=== PATIENT | male | born 1960 | race Caucasian/White ===

== ENCOUNTER 2017-09-01 12:46 | Inpatient (IN) | payer OTHER ==
--- NOTE | 2017-09-01 16:41 | CPEKG ---
Heart Rate: 72 RR Interval: 833 P-R Interval: 180 QRSD Interval: 154 QT Interval: 432 QTC Interval: 473 P [place]: 49 QRS [place]: -49 T Wave [place]: 32 EKG Severity - ABNORMAL ECG - EKG Impression: SINUS RHYTHM EKG Impression: RBBB Electronically Signed By: Obie Desai 02-Sep-2017 06:46:36
--- NOTE | 2017-09-01 16:54 | PDGENHP ---
History and Physical - Chief Complaint infected valve - History of Present Illness 56 yo male with a 2 yr old bioprosthetic valve and a 2 wk hx of flu-like symptoms (including F/C, headache, myalgias and night sweats) ultimately found to have streptococcal bacteremia with echo suggestive of PVE. Resolution of sx on supportive therapy and targetted abx. No palpitations, presyncope, edema, SOB , abdominal tenderness or skin lesions. No recent dental work or gingivitis. Transferred from outside hospital for redo AVR to mitigate stroke risk. History Information - Allergies/Home Medication List Allergies/Adverse Reactions: codeine Allergy (Verified 09/25/15 17:42) Itching Home Medications: Cyanocobalamin [Vitamin B12 (*)] 1,000 mcg PO Q3D 09/29/15 [Last Taken 08/30/17] Iron/Vit C/Docusate [Dominic-Sequels 65 mg (*)] 1 each PO Q2D 09/29/15 [Last Taken 08/30/17] [place]-3 Fatty Acids [Fish Oil 1000 mg (*)] 1,000 mg PO DAILY 09/29/15 [Last Taken 08/30/17] buPROPion XL [Wellbutrin 150mg XL] 300 mg PO DAILY 09/29/15 [Last Taken 08/30/17 ] Aspirin [Aspirin 325 mg (*)] 325 mg PO DAILY 12/03/15 [Last Taken 08/30/17] Ibuprofen [Motrin (*)] 200 mg PO DAILY PRN 12/03/15 [Last Taken 08/30/17] Cholecalciferol Vit D3 [Vitamin D3 (*)] 2,000 units PO DAILY 09/01/17 [Last Taken 08/30/17] Diltiazem Cd [Cardizem ER 180 MG (RX)] 180 mg PO DAILY 09/01/17 [Last Taken 06/18] Fexofenadine HCl [Cherie Allergy] 180 mg PO DAILY 09/01/17 [Last Taken 08/30/17 ] I have personally reviewed and updated: medical history, social history, surgical history - Past Medical History hypertension Additional medical history: BAV with severe and moderate AI. Mildly dilated ascending aorta. Grade 2 LV diastolic dysfunction. RBBB. bipolar disorder, off meds since 2006. amaurosis fugax 2004. BPH w LUTS - Surgical History Additional surgical history: MICS AVR with 23 mm Magna bioprosthesis via partial upper "J" sternotomy 09/29/[address] Sullivan @ [facility]; uncomplicated postop course, released home POD#3. [facility]Light PVP/TURP 12/03/15. Partial colectomy for volvulus, 1999. Left rotator cuff repair, 2008 - Family History Additional family history: BAV, brother - Social History Smoking Status: Never smoked Alcohol Use: Occasionally (socially) Review of Systems Review of Systems: ROS: 10pt was reviewed & negative except for what was stated in HPI & below Genitourinary: Reports: no symptoms (since prostate surgery) Physical Exam Physical Exam: Temp Pulse Resp BP Pulse Ox 36.8 C 71 15 140/100 H 96 09/01/17 16:03 09/01/17 16:03 09/01/17 16:03 09/01/17 16:03 09/01/17 16:03 Constitutional: no apparent distress, appears nourished Eyes: anicteric sclera, other (PER, glasses) Ears, Nose, Mouth, Throat: moist mucous membranes, hearing normal, no oral mucosal ulcers, other (no visible dental disrepair) Cardiovascular: regular rate and rhythym, systolic murmur, other (well healed upper sternotomy) Peripheral Pulses: 3+: dorsalis-pedis (R), dorsalis-pedis (L) Respiratory: no respiratory distress, no rales or rhonchi, clear to auscultation Gastrointestinal: normoactive bowel sounds, soft, non-tender abdomen Genitourinary: no bladder fullness Skin: warm, no rashes or abrasions Musculoskeletal: other (symmetric tone) Neurologic: AAOx3 Psychiatric: interacting appropriately, not anxious Lab Data & Imaging Review 09/01/17 16:45 Imaging Review: Echo to be reviewed by Dr Sullivan later tonight Chest X-Ray results: no infiltrate, normal, normal heart size, other (Sternal wires x 3 intact) Visualized and Interpreted EKG results: Yes EKG Interpretation: Positive for: normal sinsus rhythm (72), right bundle branch block (incomplete) Assessment & Plan Assessment: Prosthetic valve endocarditis with mobile vegetation Plan: Cont current Abx pending intraop culture results. Redo tissue AVR via full median sternotomy tomorrow 0800. NPO after MN. Type and cross x 2u PRBC. Consents per Dr Sullivan.
[2017-09-01] MEDS ORDERED: ACETAMINOPHEN 500 MG TAB PO PRN (18:00)
--- NOTE | 2017-09-01 18:45 | PDMN ---
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 suggestive on echocardiogram, streptococcal bacteremia, resolution of symptoms on supportive therapy and targeted antibiotics, patient transferred from outside hospital to [facility] for planned 2017 8 AM surgery - redo tissue AVR via full median sternotomy to mitigate stroke risk, (Inpatient surgery per Medicare guidelines), requiring ongoing preop IV Ceftriazone daily, cardiac monitoring, pulse oximetry, comorbid history of bioprosthetic valve surgery 09/29/2015 for severe aortic stenosis, and moderate aortic insufficiency, hypertension, bipolar disorder - off meds since 2006. PA anticipates > 2 MN LOS for ongoing med nec for eval and TX of above.
[2017-09-01] MEDS ORDERED: CHLORHEXIDINE GLUC HIBICLENS 118 ML BTL TP SCH (21:00)
[2017-09-01] MEDS: MUPIROCIN 2% 22 GM OINT NS SCH (21:57)
[2017-09-01] MEDS: SENNOSIDES/DOCUSATE SODIUM TAB PO SCH (22:00)
[2017-09-01] MEDS: HEPARIN 5,000 UNIT/0.5 ML SYR SC SCH (22:00)
[2017-09-02] MEDS ORDERED: SODIUM BICARBONATE 20 MEQ, LIDOCAINE 1% 10 ML in NORMOSOL-R 1,000 ML MISC ONE (06:00)
[2017-09-02] MEDS ORDERED: MANNITOL 25% 12.5 GM/50 ML VIAL IVP ONE (06:00)
[2017-09-02] MEDS ORDERED: AMINOCAPROIC ACID 5 GM/20 ML VIAL IV ONE (06:00)
[2017-09-02] MEDS ORDERED: INSULIN REGULAR HUMAN 100 UNIT in NS 100 ML IV ONE (06:00)
[2017-09-02] MEDS ORDERED: NOREPINEPHRINE BITARTRATE 16 MG in NS 250 ML IV ONE (06:00)
[2017-09-02] MEDS ORDERED: CITRATE DEXTROSE SOLN 500 ML BAG MISC ONE (06:00)
[2017-09-02] MEDS ORDERED: PHENYLEPHRINE HCL 50 MG in NS 250 ML IV ONE (06:00)
[2017-09-02] MEDS ORDERED: PROTAMINE SULFATE 50 MG/5 ML VIAL IVP ONE (07:00)
[2017-09-02] MEDS ORDERED: CALCIUM CHLORIDE 1 GM/10 ML INJ ONE ×2 (07:00→07:04)
[2017-09-02] MEDS ORDERED: NA BICARBONATE 50 MEQ/50 ML VIAL ONE (07:01)
[2017-09-02] MEDS ORDERED: HEPARIN 10,000 UNIT/10 ML MDV (1,000 UNIT/ML) ONE ×2 (07:01→07:05)
[2017-09-02] MEDS ORDERED: MILRINONE/DEXTROSE/100 ML BAG IV ONE (07:01)
[2017-09-02] MEDS ORDERED: AMIODARONE HCL 150 MG/3 ML VIAL ONE ×2 (07:02→07:05)
[2017-09-02] MEDS ORDERED: niCARdipine/NACL/200 ML BAG IV ONE ×2 (07:02→12:27)
[2017-09-02] MEDS ORDERED: DOPamine/DEXTROSE/250 ML BAG IV ONE (07:02)
[2017-09-02] MEDS ORDERED: ADENOSINE 6 MG/2 ML VIAL ONE (07:03)
[2017-09-02] MEDS ORDERED: ceFAZolin 1 GM VIAL ONE (07:03)
[2017-09-02] MEDS ORDERED: LIDOCAINE 2% 100 MG/5 ML SYR ONE ×2 (07:04→08:00)
[2017-09-02] MEDS ORDERED: ALBUMIN 5% 250 ML BOTTLE IV ONE ×2 (07:04→11:00)
[2017-09-02] MEDS ORDERED: CITRATE DEXTROSE SOLN 500 ML BAG ONE (07:05)
[2017-09-02] MEDS ORDERED: MAGNESIUM SULFATE 1 GM/2 ML VIAL ONE (07:06)
[2017-09-02] MEDS ORDERED: methylPREDNISolone SOD SUCC 1 GM/8 ML VIAL ONE (07:06)
[2017-09-02] MEDS ORDERED: MINERAL OIL 10 ML VIAL ONE (07:09)
[2017-09-02] MEDS ORDERED: MIDAZOLAM 2 MG/2 ML VIAL IVP ONE (07:49)
--- NOTE | 2017-09-02 07:52 | PDANEPAE ---
ANE History of Present Illness Redo Ao valve secondary to osteomyelitis ANE Past Medical History - Cardiovascular History Hx Hypertension: Yes Hx Arrhythmias: Yes Hx Chest Pain: No Hx Coronary Artery / Peripheral Vascular Disease: No Hx CHF / Valvular Disease: No Hx Palpitations: No Cardiovascular History Comment: HX -AORTIC REGURUGITATION,. AORTIC ROOT DILATATION,. BICUSPID AORTIC VALVE . 09/29/2015 AORTIC VALVE REPLACEMENT. HTN. LVH. RBBB - Pulmonary History Hx COPD: No Hx Asthma/Reactive Airway Disease: No Hx Recent Upper Respiratory Infection: No Hx Oxygen in Use at Home: No Hx Sleep Apnea: No Sleep Apnea Screening Result - Last Documented: Positive Pulmonary History Comment: TAQUERIA TRIGGERS - Neurologic History Hx Cerebrovascular Accident: No Hx Seizures: No Hx Dementia: No - Endocrine History Hx Diabetes: No - Renal History Hx Renal Disorders: No - Liver History Hx Hepatic Disorders: No - Neurological & Psychiatric Hx Hx Neurological and Psychiatric Disorders: No - Cancer History Hx Cancer: No - Congenital Disorder History Hx Congenital Disorders: No - GI History Hx Gastrointestinal Disorders: No - Other Health History Other Health History: 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 PARTIAL COLECTOMY. LEFT ROTATOR CUFF REPAIR ANE Review of Systems Review of Systems: - Exercise capacity Exercise capacity: >=4 METS ANE Patient History - Allergies Allergies/Adverse Reactions: codeine Allergy (Verified 09/25/15 17:42) Itching - Home Medications Home medications: home medication list seen and reviewed Home Medications: Cyanocobalamin [Vitamin B12 (*)] 1,000 mcg PO Q3D 09/29/15 [Last Taken 08/30/17] Iron/Vit C/Docusate [Dominic-Sequels 65 mg (*)] 1 each PO Q2D 09/29/15 [Last Taken 08/30/17] [place]-3 Fatty Acids [Fish Oil 1000 mg (*)] 1,000 mg PO DAILY 09/29/15 [Last Taken 08/30/17] buPROPion XL [Wellbutrin 150mg XL] 300 mg PO DAILY 09/29/15 [Last Taken 08/30/17 ] Aspirin [Aspirin 325 mg (*)] 325 mg PO DAILY 12/03/15 [Last Taken 08/30/17] Ibuprofen [Motrin (*)] 200 mg PO DAILY PRN 12/03/15 [Last Taken 08/30/17] Cholecalciferol Vit D3 [Vitamin D3 (*)] 2,000 units PO DAILY 09/01/17 [Last Taken 08/30/17] Diltiazem Cd [Cardizem ER 180 MG (RX)] 180 mg PO DAILY 09/01/17 [Last Taken 06/18] Fexofenadine HCl [Cherie Allergy] 180 mg PO DAILY 09/01/17 [Last Taken 08/30/17 ] - NPO status NPO Status: no food or drink >8 hours NPO Since - Liquids (Date): 09/02/17 NPO Since - Liquids (Time): 00:00 NPO Since - Solids (Date): 09/02/17 NPO Since - Solids (Time): 00:00 - Anes Hx Anes Hx: no prior problems - Smoking Hx Smoking Status: Never smoked - Alcohol Use Alcohol Use: Occasionally (socially) - Family Anes Hx Family Anes Hx: none Family Hx Anesthesia Complications: NONE ANE Labs/Vital Signs - Labs Result Diagrams: 09/02/17 03:59 09/01/17 16:45 - Vital Signs Blood Pressure: 123/97 Heart Rate: 70 Respiratory Rate: 15 O2 Sat (%): 95 Height: 175.26 cm Weight: 80.3 kg ANE Physical Exam - Airway Neck exam: FROM Mallampati Score: Class 2 Mouth exam: normal dental/mouth exam - Pulmonary Pulmonary: no respiratory distress - Cardiovascular Cardiovascular: regular rate and rhythym - ASA Status ASA Status: II ANE Anesthesia Plan Anesthesia Plan: general endotracheal anesthesia Lines/Monitors: arterial line, central line
[2017-09-02] MEDS ORDERED: MIDAZOLAM 2 MG/2 ML VIAL ONE ×3 (07:58→08:00)
[2017-09-02] MEDS ORDERED: REMIFENTANIL HCL 1 MG VIAL ONE (07:59)
[2017-09-02] MEDS ORDERED: DEXMEDETOMIDINE HCL 400 MCG in NS 100 ML IV SCH (08:00)
[2017-09-02] MEDS ORDERED: fentaNYL 250 MCG/5 ML INJ ONE (08:00)
[2017-09-02] MEDS ORDERED: ONDANSETRON 4 MG/2 ML VIAL ONE (08:00)
[2017-09-02] MEDS ORDERED: ROCURONIUM 100 MG/10 ML VIAL ONE (08:00)
[2017-09-02] MEDS ORDERED: PROPOFOL/EMULSION 500 MG/50 ML BOTTLE IV ONE (08:00)
[2017-09-02] MEDS ORDERED: epHEDrine SULFATE 10 MG/ML SYR ONE ×2 (08:00)
[2017-09-02] MEDS ORDERED: DEXAMETHASONE 4 MG/ML VIAL ONE ×2 (08:00)
[2017-09-02] MEDS ORDERED: PHENYLEPHRINE HCL 100 MCG/ML SYR ONE (08:00)
[2017-09-02] MEDS ORDERED: LIDOCAINE HCL 160 MG/4 ML LTA KIT TP ONE (08:01)
[2017-09-02] MEDS: cefTRIAXone 2 GM in STERILE WATER INJ 20 ML IV SCH (08:42)
[2017-09-02] MEDS ORDERED: fentaNYL 100 MCG/2 ML INJ ONE ×2 (10:51→11:45)
[2017-09-02] MEDS ORDERED: MAGNESIUM SULF 2 GM/WATER 50 ML BAG IV ONE (10:56)
[2017-09-02] MEDS ORDERED: SUGAMMADEX SODIUM 200 MG/2 ML VIAL IVP ONE (11:50)
[2017-09-02] MEDS ORDERED: METOCLOPRAMIDE 10 MG/2 ML VIAL IVP PRN (12:01)
[2017-09-02] MEDS ORDERED: PANTOPRAZOLE SODIUM 40 MG VIAL IVP ONE (12:01)
[2017-09-02] MEDS ORDERED: ACETAMINOPHEN 650 MG SUPP PR PRN (12:01)
[2017-09-02] MEDS ORDERED: ACETAMINOPHEN 325 MG TAB PO PRN (12:01)
[2017-09-02] MEDS ORDERED: ALBUMIN 5% 250 ML IV PRN (12:01)
[2017-09-02] MEDS ORDERED: BISACODYL 10 MG SUPP PR PRN (12:01)
[2017-09-02] MEDS ORDERED: MAGNESIUM SULF 2 GM/WATER 50 ML IV ONE (12:01)
[2017-09-02] MEDS ORDERED: ONDANSETRON 4 MG/2 ML VIAL IVP PRN (12:01)
[2017-09-02] MEDS ORDERED: MEPERIDINE 25 MG/0.5 ML AMP IVP PRN (12:01)
[2017-09-02] MEDS ORDERED: SODIUM CL NASAL 45 ML BTL EACHNARE PRN (12:01)
[2017-09-02] MEDS ORDERED: LACTULOSE 20 GM/30 ML UDCUP PO PRN (12:01)
[2017-09-02] MEDS ORDERED: POLYETHYLENE GLYCOL 3350 17 GM PKT PO PRN (12:01)
[2017-09-02] MEDS ORDERED: MAGNESIUM HYDROXIDE 30 ML UDCUP PO PRN (12:01)
[2017-09-02] MEDS ORDERED: POTASSIUM Cl (KCl) 50 ML IV PRN (12:01)
[2017-09-02] MEDS ORDERED: D50W 25 GM/50 ML SYR IVP PRN (12:01)
[2017-09-02] MEDS ORDERED: CEPACOL LOZENGE PO PRN (12:01)
[2017-09-02] MEDS ORDERED: ONDANSETRON DISINTEGRATING 4 MG TAB PO PRN (12:01)
[2017-09-02] MEDS ORDERED: NS 1,000 ML IV SCH (12:15)
[2017-09-02] MEDS ORDERED: KETOROLAC 30 MG/1 ML SDV ONE (12:20)
[2017-09-02] MEDS ORDERED: KETOROLAC 30 MG/1 ML SDV IVP ONE (12:30)
[2017-09-02] MEDS ORDERED: INSULIN REGULAR HUMAN 100 UNIT in NS 100 ML IV SCH (12:30)
[2017-09-02] MEDS ORDERED: KETOROLAC 15 MG/1 ML SDV IVP SCH (13:00)
--- NOTE | 2017-09-02 13:04 | GOP ---
[f rep st] OPERATIVE REPORT DATE OF OPERATION: 09/02/2017 SURGEON: Darwin Sullivan DO TRADE SHOW SPECIALIST: Laya Winchester, PAC ANESTHESIA: Sony Davidson MD PREOPERATIVE DIAGNOSIS: Prosthetic valve endocarditis. POSTOPERATIVE DIAGNOSIS: Prosthetic valve endocarditis. PROCEDURE PERFORMED: Reoperation aortic valve replacement with a #23 Hess Inspiris valve. FINDINGS: DESCRIPTION OF PROCEDURE: The patient was consented for surgery after transesophageal echo revealed a large 1 x 2 cm mobile vegetation on the prosthetic aortic valve without perivalvular leak. He was consented for surgery, brought to the operating room intubated, monitoring lines were placed. He was prepped and draped in sterile classical manner. Time-out was confirmed with the team. Repeat santos otomy was performed. Marsupialization of the right side of the heart and ascending aorta without man ipulation of the aorta or heart was performed to avoid dislodgement. He was heparinized, cannulated in the standard fashion. Bypass was begun. Antegrade cardioplegia was administered after cross-clam p was applied followed by retrograde cardioplegia. We then performed a transverse aortotomy. The ao rtic valve was intact. However, there was a large 2 x 1 cm vegetation loosely adherent to the cusps. This was removed and sent for culture. We then spent some time excising the previous valve and manasa riding the anulus. The LV chamber was irrigated. CO2 was infused throughout. We then placed a 23 m m Inspiris valve in a supra-annular position with interrupted 2-0 Tycron pledgeted mattress sutures. Aortotomy was closed in a 2-layer fashion. The cross-clamp was removed with suction on the ascendin g aortic vent and LV sump. When no further air was identified, he was easily weaned from bypass. Th e heparin was reversed with protamine. The cannula was removed and oversewn. Two ventricular pacing wires, 2 pleural 1 mediastinal drain were placed. The thymic fat and pericardium were closed. Ches t was closed in standard fashion. The patient was returned to ICU in stable condition. /[id number]/MODL
[2017-09-02] MEDS: MUPIROCIN 2% 22 GM OINT NS SCH ×2 (13:26→21:22)
[2017-09-02] MEDS: HEPARIN 5,000 UNIT/0.5 ML SYR SC SCH (13:27)
[2017-09-02] MEDS: SENNOSIDES/DOCUSATE SODIUM TAB PO SCH (13:28)
--- NOTE | 2017-09-02 15:30 | ASMTCMCOM ---
CM Note CM Note Notes: Pt admitted with an infected valve and s/p aortic valve replacement redo. Pt has a Bipolar d/o dx and not on meds since 2006. CM will follow for any d/c needs. Date Signed: 09/02/2017 03:29 PM Electronically Signed By:PRESTON Lawson
[2017-09-02] MEDS: HYDROCODONE/APAP 5/325 TAB PO PRN ×2 (17:22→23:40)
[2017-09-02] MEDS ORDERED: GENTAMICIN SULFATE IV ONE (18:16)
[2017-09-02] MEDS ORDERED: D5W IV ONE (18:16)
[2017-09-02] MEDS: KETOROLAC 30 MG/1 ML SDV IVP SCH ×2 (18:31→23:37)
[2017-09-02] MEDS: fentaNYL 100 MCG/2 ML INJ IVP PRN (19:16)
--- NOTE | 2017-09-02 21:40 | GCON ---
[f rep st] CONSULTATION INPATIENT INFECTIOUS DISEASE CONSULTATION REFERRING PHYSICIAN: Darwin Sullivan DO REASON FOR REFERRAL: Prosthetic valve endocarditis. HISTORY OF PRESENT ILLNESS: The patient is a 56-year-old male who had an initial prosthetic valve re placement approximately 2 years ago with an uncomplicated postop course. He did have a history of bi cuspid aortic valve. He began having problems approximately 2 weeks ago with flu-like symptoms inclu ding fevers and chills. He also had night sweats. He was found by blood cultures to have Streptococ cus mitis in his blood. He had an echo suggestive of a mobile echodensity off the prosthetic aortic valve. His symptoms resolved on antibiotics at an outlying hospital. He was transferred to [facility] [address] for preparation of aortic valve replacement. He underwent that surgery this morning without com plications. He is recovering and alert in the ICU. Patient was placed on ceftriaxone earlier today. Patient has no issues with allergies. PAST MEDICAL HISTORY: 1. Hypertension. 2. Bivalvular aortic valve with severe aortic stenosis and moderate aortic insufficiency. 3. Mildly dilated ascending aorta. 4. Left ventricular diastolic dysfunction. 5. Right bundle branch block. 6. History of bipolar disorder. 7. Amaurosis fugax in 2004. 8. Benign prostatic hypertrophy. PAST SURGICAL HISTORY: 1. Aortic valve replacement, 2015. 2. [facility] TURP, 2015. 3. Partial colectomy secondary to volvulus, 1999. 4. Left rotator cuff repair, 2008. MEDICATIONS: ANTIBIOTICS: Ceftriaxone. ALLERGIES: No known drug allergies. SOCIAL HISTORY: No tobacco use. Only occasional alcohol use. No drug use. FAMILY HISTORY: Significant for bicuspid aortic valve. REVIEW OF SYSTEMS: Other than that detailed above in history of present illness, patient does have s ome [id number] postoperative pain. Otherwise, the review is negative. PHYSICAL EXAMINATION: VITAL SIGNS: Temperature maximum is 37, temperature current is 37, heart rate is 62, respiratory rate is 20, blood pressure is 95/62. GENERAL: Patient is a well-formed well-nou rished male in no acute distress. He is not toxic in appearance. He is alert and oriented x3. He i s pleasant in demeanor. HEENT: Normocephalic for age. Atraumatic. No scleral icterus. No oral le virginie or drainage from the nares. Eyelids and conjunctivae are within normal limits. Pupils are equa l and round bilaterally. NECK: Supple. No meningismus. LUNGS: Clear to auscultation with reasona ble effort. HEART: Regular rate and rhythm. SKIN: Warm and dry to the touch. Patient has a santos al operative wound which is clean, dry, and intact. No bleeding. MUSCULOSKELETAL: No other muscle tenderness is noted. No joint line effusion or arthritis seen. NEURO: Cranial nerves 2 through 12 seem to be intact. Peripheral sensation seems intact in extremities. DATA REVIEWED: LABORATORY DATA: Patient has a CBC dated 09/02/2017 that shows a white blood cell co unt of 9.0, hemoglobin of 13.8, hematocrit of 43.1, and a platelet count of 309. Serum chemistries o n 09/02/2017 are all within normal limits. Creatinine is 1.0. MICROBIOLOGIC DATA: Patient has operative cultures from earlier today which is cardiac tissue. Gram stain is negative for organisms, and the culture is pending. Prior culture from [facility] from the blood shows 2/2 sets with Streptococcus mitis sensitive to both penicillin and cef triaxone. ASSESSMENT: Prosthetic valve endocarditis of the aortic bioprosthetic valve. Removed today. The is olate shows good sensitivity to both penicillin and ceftriaxone. Currently, he is on ceftriaxone. T he decision is whether or not to add an aminoglycoside. I think in this circumstance, the patient is low risk for any kind of renal or other toxicity due to the low-dose drug, so I think it is reasonab le to plan on adding gentamicin at 3 mg/kg q.24 hours for the first 2 weeks of therapy. The total du ration of the ceftriaxone will go for 6 weeks. We will follow him clinically to see how he tolerates this regimen. PLAN: 1. Ceftriaxone 2 g IV q.24 hours for 6 weeks. 2. Gentamicin 3 mg/kg q.24 hours IV for the first 2 weeks. 3. Follow up on his initial blood cultures and operative cultures. /[id number]/MODL
[2017-09-03] MEDS: fentaNYL 100 MCG/2 ML INJ IVP PRN (02:23)
[2017-09-03 05:26] LABS: PLATELET COUNT 237 10^3/uL (150-400)
[2017-09-03] MEDS: KETOROLAC 30 MG/1 ML SDV IVP SCH ×4 (05:50→23:54)
[2017-09-03] MEDS: HEPARIN 5,000 UNIT/0.5 ML SYR SC SCH ×3 (05:50→21:18)
[2017-09-03] MEDS: HYDROCODONE/APAP 5/325 TAB PO PRN ×2 (06:49→11:11)
--- NOTE | 2017-09-03 06:57 | SOAPPROG ---
SOAP Progress Note Assessment/Plan: Assessment: POD#1 Redo AVR #23 Hess Inspiris Resilia bioprosthesis Strep mitis PVE - with large mobile vegetation (see intraop pics paper chart). Valve replaced without incident. Await cx results. Extubated in the OR. Hemodynamically stable early postop course. No vasoactive support. No dysrhythmias. ID following and directing abx. Antithrombotic prophylaxis with ASA alone. AF prophylaxis with BB as tolerated. Acute expected blood loss anemia - Stable. No transfusions required. VTE prophylaxis with SQ hep. Plan: Routine POD#1 orders re wires, lines, drains, orals and mobility. Lasix 20 mg IV x 1 Start metoprolol 12.5 mg BID w conservative hold parameters. PICC if ok with ID. Tx to PCU. 09/03/17 06:54 Subjective: Feels well. Adequate analgesia. OOB without dizziness. Hungry. Objective: Vital Signs Temp Pulse Resp BP Pulse Ox 36.8 C 82 18 134/75 H 91 L 09/03/17 05:00 09/03/17 06:00 09/03/17 06:00 09/03/17 06:00 09/03/17 06:00 Microbiology 09/02/17 10:00 Gram Stain - Final Heart - Tissue Laboratory Results 09/03/17 05:10 09/03/17 05:10 09/02/17 09/03/17 09/04/17 05:59 05:59 05:59 Intake Total 500 8061 Output Total 2110 Balance 500 5951 Stable HR and rhythm. Brief nicardipine for elev SBPs secondary to pain. Min suppl O2 req. No sig CTOP. CXR -> hypoventilation, left basilar atelectasis, no PTX. Relatively balanced I/Os, intake reflects maintenance IVF documentation error. Elev K, likely iatrogenic. Cr stable. Physical Exam - Physical Exam General Appearance: alert, no apparent distress Respiratory: lungs clear (grossly), other (blakes x 3 y-d to pleurovac, thin serosang drainage, no air leak) Cardiac/Chest: regular rate, rhythm, other (Sternotomy CDI. Vwires intact.) Abdomen: normal bowel sounds, non-tender, soft Skin: warm/dry Extremities: swelling (trace generalized) ICD10 Worksheet Patient Problems: Problems Problem Status Onset Acute blood loss anemia Acute Prosthetic valve endocarditis Acute S/P aortic valve replacement with bioprosthetic valve Acute ~09/02/17 Aortic ectasia Chronic Diastolic dysfunction Chronic
[2017-09-03] MEDS ORDERED: FUROSEMIDE 20 MG/2 ML VIAL IVP ONE (08:04)
[2017-09-03] MEDS: ASPIRIN 325 MG TAB PO SCH (09:14)
[2017-09-03] MEDS: METOPROLOL TARTRATE 25 MG TAB PO SCH ×2 (09:14→21:41)
[2017-09-03] MEDS: buPROPion XL 150 MG TAB PO SCH (09:14)
[2017-09-03] MEDS: PANTOPRAZOLE SODIUM 40 MG TAB PO SCH (09:14)
[2017-09-03] MEDS: CETIRIZINE 10 MG TAB PO SCH (09:14)
[2017-09-03] MEDS: cefTRIAXone 2 GM in STERILE WATER INJ 20 ML IV SCH (09:14)
--- NOTE | 2017-09-03 09:44 | POSTANESTH ---
Post Anesthetic Evaluation Cardiovascular Status: Normal, Stable Respiratory Status: Tx Decrease in SpO2 Level of Consciousness/Mental Status: Can Participate in Eval Pain Control: Adequate, Prn Tx Ordered Nausea/Vomiting Control: Adequate, Prn Tx Ordered Complications Possibly Related to Anesthesia: None Noted (Having breakfast Feels great O2 by NC only)
[2017-09-03] MEDS: MUPIROCIN 2% 22 GM OINT NS SCH ×2 (11:12→21:22)
--- NOTE | 2017-09-03 13:46 | PCMIDPN ---
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 This is in the strep [place] group. The isolate from [place] is penicillin sensitive. We will choose to continue on ceftriaxone 2 g IV Q 24 hr with gentamicin at 3 milligrams/kilogram IV Q 24 hr for the 1st 2 weeks. Patient is making a remarkable clinical recovery from his redo valve. No fevers or chills. Plan: 1. PICC line placement when ready. 2. Follow clinical improvement. Will plan for him to have 6 weeks of IV antibiotics at home. 09/03/17 13:43 Subjective: Patient is resting in his bed in the ICU. He was very active this morning and walked around the ICU twice. No new complaints except for postoperative pain. Objective: Ceftriaxone # 2 Gentamicin # 1 Vital Signs Temp Pulse Resp BP Pulse Ox 37 C 76 20 114/82 H 94 09/03/17 08:00 09/03/17 12:00 09/03/17 12:00 09/03/17 12:00 09/03/17 12:00 Microbiology 09/02/17 10:00 Gram Stain - Final Heart - Tissue Laboratory Results 09/03/17 05:10 09/03/17 05:10 09/02/17 09/03/17 09/04/17 05:59 05:59 05:59 Intake Total 500 8061 500 Output Total 2110 425 Balance 500 5951 75 - Physical Exam General Appearance: WD/WN, alert, no apparent distress, non-toxic Respiratory: lungs clear, normal breath sounds, No respiratory distress Cardiac/Chest: regular rate, rhythm, No bradycardia, No tachycardia Skin: normal color, warm/dry, No rash Neuro/Psych: alert, normal mood/affect, oriented x 3 ICD10 Worksheet Patient Problems: Problems Problem Status Onset Acute blood loss anemia Acute Prosthetic valve endocarditis Acute S/P aortic valve replacement with bioprosthetic valve Acute ~09/02/17 Aortic ectasia Chronic Diastolic dysfunction Chronic
[2017-09-03] MEDS: traMADol 50 MG TAB PO PRN ×2 (15:53→21:18)
[2017-09-03] MEDS ORDERED: D5W IV ONE (18:00)
[2017-09-03] MEDS ORDERED: GENTAMICIN SULFATE IV ONE (18:00)
[2017-09-04] MEDS: HYDROCODONE/APAP 5/325 TAB PO PRN ×2 (06:12→21:27)
[2017-09-04] MEDS: HEPARIN 5,000 UNIT/0.5 ML SYR SC SCH ×3 (06:14→21:12)
--- NOTE | 2017-09-04 07:19 | SOAPPROG ---
SOAP Progress Note Assessment/Plan: Assessment: POD#2 Urgent redo AVR #23 Hess Inspiris Resilia bioprosthesis Strep mitis PVE - with large mobile vegetation (see intraop pics paper chart). Valve replaced without incident. Extubated in the OR. Hemodynamically stable early postop course. No vasoactive support. No dysrhythmias. GS of vegetation neg for org, prelim cx NGTD. ID following and directing abx. Antithrombotic prophylaxis with ASA alone. AF prophylaxis with BB as tolerated. Acute expected blood loss anemia - Stable. No transfusions required. VTE prophylaxis with SQ hep. Plan: Remove TCPWs and CTs. Cont metoprolol 12.5 mg BID w conservative hold parameters. Wean O2. Carole blood cultures. PICC if bacteremia cleared. Baseline postop echo tomorrow. Dispo - Anticipate home in 2 days. 09/04/17 07:15 Subjective: Feels well. Improving mobility. Adequate analgesia. Good appetite. Awaiting BM. Objective: Vital Signs Temp Pulse Resp BP Pulse Ox 36.8 C 79 16 118/79 97 09/04/17 04:00 09/04/17 04:00 09/04/17 04:00 09/04/17 04:00 09/04/17 04:00 Microbiology 09/02/17 10:00 Gram Stain - Final Heart - Tissue Laboratory Results 09/03/17 05:10 09/04/17 06:30 09/03/17 09/04/17 09/05/17 05:59 05:59 05:59 Intake Total 8061 850 200 Output Total 2110 1020 150 Balance 5951 -170 50 Afeb. VSS. SR w PACs. Excellent sats on 2 lpm, likely could wean to RA once CTs out. Adequate fluid balance. CTOP at removal criteria. - Pending Discharge Pending Discharge Within 48 Hours: Yes Pending Discharge Date: 09/06/17 Pending Discharge Time: 11:00 Physical Exam - Physical Exam General Appearance: alert, no apparent distress Respiratory: crackles (bases), other (blakes x 3 to bulb suction, thin serosang drainage) Cardiac/Chest: regular rate, rhythm, other (Sternotomy CDI) Abdomen: non-tender, soft Skin: warm/dry Extremities: other (no visible edema) ICD10 Worksheet Patient Problems: Problems Problem Status Onset Acute blood loss anemia Acute Prosthetic valve endocarditis Acute S/P aortic valve replacement with bioprosthetic valve Acute ~09/02/17 Aortic ectasia Chronic Diastolic dysfunction Chronic
[2017-09-04] MEDS: cefTRIAXone 2 GM in STERILE WATER INJ 20 ML IV SCH (10:56)
[2017-09-04] MEDS: CHOLECALCIFEROL VIT D3 1,000 UNITS TAB PO SCH (10:56)
[2017-09-04] MEDS: buPROPion XL 150 MG TAB PO SCH (10:57)
[2017-09-04] MEDS: ASPIRIN 325 MG TAB PO SCH (10:57)
[2017-09-04] MEDS: CETIRIZINE 10 MG TAB PO SCH (10:57)
[2017-09-04] MEDS: PANTOPRAZOLE SODIUM 40 MG TAB PO SCH (10:57)
[2017-09-04] MEDS: METOPROLOL TARTRATE 25 MG TAB PO SCH ×2 (10:58→21:12)
[2017-09-04] MEDS: OMEGA-3 FATTY ACIDS 1,000 MG CAP PO SCH (10:58)
[2017-09-04] MEDS: SENNOSIDES/DOCUSATE SODIUM TAB PO SCH ×2 (10:59→21:13)
[2017-09-04] MEDS ORDERED: AMIODARONE HCL 100 ML IV ONE (11:04)
[2017-09-04] MEDS ORDERED: AMIODARONE HCL 200 ML IV ONE (11:04)
[2017-09-04] MEDS: traMADol 50 MG TAB PO PRN ×2 (11:41→18:43)
--- NOTE | 2017-09-04 13:07 | PCMIDPN ---
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 Reviewed isolate with [facility]ology lab - organism did not grow well enough for gentamicin synergy testing. Will continue ceftriaxone and gentamicin x2 weeks with subsequent 4 weeks of ceftriaxone to complete 6 weeks total of therapy. Side effects of gentamicin including risk of nephrotoxicity, ototoxicity, and vestibular toxicity reviewed with patient. Will obtain trough level prior to next dose of gentamicin to ensure safety; no clear guidelines for goal levels with once daily dosing for this purpose. Time spent, greater than 35 min, of which greater than half was spent in education/counseling/coordination of care related prosthetic valve endocarditis and plan of care including need for PICC line with risks and benefits discussed and ongoing antibiotic therapy with risks and benefits discussed. 09/04/17 13:03 09/04/17 13:08 Subjective: Patient with discomfort after having chest tubes removed. Objective: Vital Signs Temp Pulse Resp BP Pulse Ox 36.8 C 90 24 H 121/92 H 91 L 09/04/17 11:56 09/04/17 11:56 09/04/17 11:56 09/04/17 11:56 09/04/17 11:56 Microbiology 09/02/17 10:00 Gram Stain - Final Heart - Tissue Laboratory Results 09/03/17 05:10 09/04/17 06:30 09/03/17 09/04/17 09/05/17 05:59 05:59 05:59 Intake Total 8061 850 500 Output Total 2110 1120 150 Balance 5951 -270 350 Ceftriaxone # 3 Gentamicin # 3 Valve cultures no growth to date - Physical Exam General Appearance: alert, no apparent distress EENT: No conjunctival petechiae Respiratory: lungs clear, No respiratory distress Cardiac/Chest: regular rate, rhythm, other (Sternotomy intact without erythema or drainage), No systolic murmur Abdomen: non-tender, No distended Skin: No embolic lesions ICD10 Worksheet Patient Problems: Problems Problem Status Onset Acute blood loss anemia Acute Postoperative atrial fibrillation Acute Prosthetic valve endocarditis Acute S/P aortic valve replacement with bioprosthetic valve Acute ~09/02/17 Aortic ectasia Chronic Diastolic dysfunction Chronic
[2017-09-04] MEDS: MUPIROCIN 2% 22 GM OINT NS SCH (14:14)
--- NOTE | 2017-09-04 14:22 | ASMTCMCOM ---
CM Note CM Note Notes: 09/04/2017 Case Management Note Met w/pt to discuss d/c antibiotic needs. Faxed referrals to several home infusion companies. Pt is in network with [facility] and has met his deductible, home antibiotics are 100 % covered. [facility] priced out the antibiotics at $18.40 per day. Waiting to hear pricing from [facility]. Pt inquired about using the infusion center at [address] through [facility]. After discussing above options pt prefers home IV therapy. Case Management faxed referrals for home agent. Case Management d/c poc: home with iv antibiotics and home agent. Case Management to follow. Date Signed: 09/04/2017 02:21 PM Electronically Signed By:Heather Rossi RN
[2017-09-04] MEDS ORDERED: ALTEPLASE 2 MG VIAL IVP PRN (16:18)
[2017-09-04] MEDS ORDERED: AMIODARONE HCL 540 MG in D5W 300 ML IV ONE (17:30)
[2017-09-04] MEDS: FERRO-SEQUELS 65 MG TAB.ER PO SCH (18:42)
[2017-09-04] MEDS: GENTAMICIN SULFATE IV SCH (19:46)
[2017-09-04] MEDS: D5W IV SCH (19:46)
[2017-09-05] MEDS: traMADol 50 MG TAB PO PRN (02:03)
[2017-09-05] MEDS: HYDROCODONE/APAP 5/325 TAB PO PRN ×3 (06:19→20:41)
--- NOTE | 2017-09-05 06:24 | SOAPPROG ---
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 PICC line ordered. Antithrombotic prophylaxis with ASA alone. AF prophylaxis with BB as tolerated. Paroxysmal atrial fibrillation - Prompt conversion to SR with amiodarone load. Will convert to PO today. [id number] of 0. Acute expected blood loss anemia - Stable. No transfusions required. DVT prophylaxis - SCDs/heparin SQ. Disposition - home Monday with [facility] for antibiotic administration as per ID. Subjective: Feels well today. Denies pain/SOB. Objective: Vital Signs Temp Pulse Resp BP Pulse Ox 37.1 C 66 20 120/87 H 94 09/05/17 04:00 09/05/17 04:00 09/05/17 04:00 09/05/17 04:00 09/05/17 04:00 Microbiology 09/02/17 10:00 Gram Stain - Final Heart - Tissue Laboratory Results 09/03/17 05:10 09/04/17 06:30 09/04/17 09/05/17 09/06/17 05:59 05:59 05:59 Intake Total 850 1431 Output Total 1120 900 Balance -270 531 Physical Exam - Physical Exam General Appearance: WD/WN, alert, no apparent distress EENT: No scleral icterus (R), No scleral icterus (L) Neck: normal inspection Respiratory: No respiratory distress Cardiac/Chest: regular rate, rhythm Abdomen: non-tender, soft, No distended Skin: normal color, warm/dry Extremities: No pedal edema Neuro/Psych: no motor/sensory deficits, alert, normal mood/affect, oriented x 3 ICD10 Worksheet Patient Problems: Problems Problem Status Onset Acute blood loss anemia Acute Postoperative atrial fibrillation Acute Prosthetic valve endocarditis Acute S/P aortic valve replacement with bioprosthetic valve Acute ~09/02/17 Aortic ectasia Chronic Diastolic dysfunction Chronic
[2017-09-05] MEDS: HEPARIN 5,000 UNIT/0.5 ML SYR SC SCH ×3 (06:43→20:42)
[2017-09-05] MEDS ORDERED: CYANO/VITAMIN B12 1000 MCG TAB PO SCH (08:00)
[2017-09-05] MEDS: ASPIRIN 325 MG TAB PO SCH (08:21)
[2017-09-05] MEDS: buPROPion XL 150 MG TAB PO SCH (08:21)
[2017-09-05] MEDS: OMEGA-3 FATTY ACIDS 1,000 MG CAP PO SCH (08:21)
[2017-09-05] MEDS: PANTOPRAZOLE SODIUM 40 MG TAB PO SCH (08:21)
[2017-09-05] MEDS: FERRO-SEQUELS 65 MG TAB.ER PO SCH (08:21)
[2017-09-05] MEDS: CHOLECALCIFEROL VIT D3 1,000 UNITS TAB PO SCH (08:21)
[2017-09-05] MEDS: SENNOSIDES/DOCUSATE SODIUM TAB PO SCH ×2 (08:21→20:42)
[2017-09-05] MEDS: CETIRIZINE 10 MG TAB PO SCH (08:22)
[2017-09-05] MEDS: METOPROLOL TARTRATE 25 MG TAB PO SCH ×2 (08:22→20:42)
[2017-09-05] MEDS: AMIODARONE HCL 200 MG TAB PO SCH ×2 (08:22→20:42)
[2017-09-05] MEDS: cefTRIAXone 2 GM in STERILE WATER INJ 20 ML IV SCH (08:30)
--- NOTE | 2017-09-05 12:08 | ECHO ---
[email or web address] [address] [address] Main: [phone] Fax: Transthoracic Echocardiogram Name: MANA SINGH MR#: [id number] Study Date: 09/05/2017 Study Time: 07:37 AM Date of : 1960 Age: 56 year(s) Height: 175.3 cm (69 in.) Weight: 85.73 kg (189 lb.) BSA: 2.02 m2 Gender: Male Examination: Echo Indication: Baseline post op echo Image Quality: Adequate Contrast: Requested by: Laya Winchester BP: 108 mmHg/96 mmHg Heart Rate: Rhythm: Indication: Baseline post op echo Procedure Staff Peoplesoft Hr Developer: Corrine Gonzalez RD Reading Physician: Nancy Massey MD Requesting Provider: Conclusions: Normal size left ventricle. Moderate concentric LV hypertrophy. Normal global systolic LV function. The ejection fraction is estimated to be 55-60 %. No regional wall motion abnormality. Normal diastolic LV function. Normal size right ventricle. Normal RV function. Mild mitral valve regurgitation is present. The aortic valve is a bioprosthesis. Normal functioning aortic valve prosthesis. The orifice motion of the prosthetic aortic valve is normal. No prosthesis regurgitation. #23 Hess Inspiris Resilia bioprosthetic aortic valve in place. Mean prosthetic valve gradient is 15 mmHg. Mild tricuspid regurgitation is present. The pulmonary artery pressure is normal. Compared with 10/01/2015 the aortic valve has been re-replaced Measurements: Chambers Valvular Assessment AV/MV Valvular Assessment TV/PV Normal Normal Normal Name Value Range Name Value Range Name Value Range Ao Marianela (2D): 3.4 cm (1.4 cm-2.6 AV meanP mmHg ( - ) TR Vmax: 2.09 mm/s ( - ) cm) YARON (VTI): 1.3 cm ( - ) TR PGmax: 17 mmHg ( - ) IVSd (2D): 1.5 cm (0.6 cm-1.1 MV E Vmax: 0.92 m/s ( - ) syst. PAP: 22 mmHg ( - ) cm) MV A Vmax: 0.66 m/s ( - ) PV Vmax: 1.33 m/s (0.6 m/s-0.9 LVDd (2D): 4.4 cm (4.2 cm-5.9 MV E/A: 1.39 ( - ) m/s) cm) MV PHT: 0.054 s ( - ) PV PGmax: 7 mmHg ( - ) Patient: MANA SINGH Study Date: 09/05/2017 Page 1 of 3 07:37 AM LVDs (2D): 3.3 cm (2.1 cm-4 MVA (PHT): 4.1 s ( - ) cm) LVPWd (2D): 1.4 cm (0.6 cm-1 cm) LVOTd 2.0 cm 2.0 cm mm LVEF (BP): 60 % (>=55 %) EF Range: 55-60 % RVDd(2D): 4.3 cm (1.9 cm-3.8 cmmm) Continued Measurements: Chambers Valvular Assessment AV/MV Valvular Assessment TV/PV Name Value Name Value Name Value LADs: 3.3 cm MV DecTime: 183 m/s CVP (est.): 5 mmHg LADs Lon.6 cm MV E' Septal: 0.07 m/s LA Area: 17.4 cm2 MV E/E' Septal: 13.30 RA Area: 24.2 cm2 MV E/E' Lateral: 7.00 Additional Vessels Name Value Ao Ascendin.6 cm Inferior Vena Cava: 1.7 cm Findings: Left Ventricle: Normal size left ventricle. Moderate concentric LV hypertrophy. Normal global systolic LV function. The ejection fraction is estimated to be 55-60 %. No regional wall motion abnormality. Normal diastolic LV function. Right Ventricle: Normal size right ventricle. Normal RV function. Left Atrium: The left atrium is normal in size. Right Atrium: The right atrium is normal in size. Mitral Valve: The mitral valve is normal in appearance and function. Mild mitral valve regurgitation is present. No mitral stenosis is present. Aortic Valve: The aortic valve is a bioprosthesis. Normal functioning aortic valve prosthesis. The prosthetic aortic valve is normal. The orifice motion of the prosthetic aortic valve is normal. No prosthesis regurgitation. #23 Hess Inspiris Resilia bioprosthetic aortic valve in place. Mean prosthetic valve gradient is 15 mmHg. Tricuspid Valve: The tricuspid valve is normal in appearance and function. Mild tricuspid regurgitation is present. The pulmonary artery pressure is normal. Right ventricular systolic pressure measures 22mmHg. Pulmonic Valve: The pulmonic valve is normal in appearance and function. Trivial pulmonic valve regurgitation. Aorta: The aorta is normal. Normal size aortic root measuring 3.4 cm. Normal size ascending aorta measuring 3.6 cm. IVC: The IVC is normal sized. Pericardium: No pericardial effusion. No pleural effusion. (No Signature Object) Patient: MANA SINGH Study Date: 09/05/2017 Page 2 of 3 07:37 AM Patient: MANA SINGH Study Date: 09/05/2017 Page 3 of 3 07:37 AM [id number]
[2017-09-05] MEDS ORDERED: LIDOCAINE 1% 300 MG/30 ML SDV ONE (12:34)
--- NOTE | 2017-09-05 13:33 | PCMIDPN ---
Assessment/Plan: Assessment/Plan: 1. 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 - Heart valve cx thus far ngtd -blood here pending from 09/04/17 -Gent trough <0.6. Creatinine 1.0. Follow closely - wbc improved - Continue with Ceftriaxone, Gent as outlined in previous ID notes Meds ceftriaxone 2g daily Gent 240mg daily Subjective: afebrile. starting to feel better. Walked hallways today. has some chest tenderness but overall better. Denies sob, cough, abd pain or diarrhea. Objective: Vital Signs Temp Pulse Resp BP Pulse Ox 37.2 C 61 15 101/68 91 L 09/05/17 11:28 09/05/17 11:28 09/05/17 11:28 09/05/17 11:28 09/05/17 11:28 Microbiology 09/02/17 10:00 Gram Stain - Final Heart - Tissue Laboratory Results 09/05/17 06:15 09/05/17 06:15 09/04/17 09/05/17 09/06/17 05:59 05:59 05:59 Intake Total 850 1623.05 Output Total 1120 900 850 Balance -270 723.05 -850 - Physical Exam General Appearance: alert, no apparent distress Respiratory: lungs clear Cardiac/Chest: regular rate, rhythm, other (midline chest incision intact, no erythema, edges well opposed. no drainage noted) Extremities: No swelling Abdomen: normal bowel sounds, non-tender, soft, No distended Skin: No rash ICD10 Worksheet Patient Problems: Problems Problem Status Onset Acute blood loss anemia Acute Postoperative atrial fibrillation Acute Prosthetic valve endocarditis Acute S/P aortic valve replacement with bioprosthetic valve Acute ~09/02/17 Aortic ectasia Chronic Diastolic dysfunction Chronic
--- NOTE | 2017-09-05 15:37 | ASMTCMCOM ---
CM Note CM Note Notes: 09/05/2017 Case Management Note Pt met w/brand representative from [facility]. Pt decided [facility] will provide infusion services at d/c. [facility] home care considering pt but has yet to accept. Pt insurance has limited contracts with home health agencies in the area. Case Management d/c poc: home with [facility]fusion services and yet to be determined Home Health Agency. Case Management to follow. Date Signed: 09/05/2017 03:37 PM Electronically Signed By:Heather Rossi RN
[2017-09-05] MEDS ORDERED: FUROSEMIDE 20 MG/2 ML VIAL IVP ONE (16:18)
[2017-09-05] MEDS: D5W IV SCH (17:35)
[2017-09-05] MEDS: GENTAMICIN SULFATE IV SCH (17:35)
[2017-09-06] MEDS: HEPARIN 5,000 UNIT/0.5 ML SYR SC SCH (06:14)
[2017-09-06] MEDS: HYDROCODONE/APAP 5/325 TAB PO PRN (06:17)
--- NOTE | 2017-09-06 06:57 | SOAPPROG ---
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 PICC line in place. Antithrombotic prophylaxis with ASA alone. AF prophylaxis with BB as tolerated. Paroxysmal atrial fibrillation - Prompt conversion to SR with amiodarone load. Continue amiodarone/beta-michelle. [id number] of 0. Acute expected blood loss anemia - Stable. No transfusions required. DVT prophylaxis - SCDs/heparin SQ. Disposition - home today with antibiotic administration as per ID. Subjective: Breathing feels better today. Pain well-controlled. Objective: Vital Signs Temp Pulse Resp BP Pulse Ox 37.1 C 73 18 109/84 H 91 L 09/06/17 04:00 09/06/17 04:00 09/06/17 04:00 09/06/17 04:00 09/06/17 04:00 Microbiology 09/02/17 10:00 Gram Stain - Final Heart - Tissue Laboratory Results 09/05/17 06:15 09/05/17 06:15 09/05/17 09/06/17 09/07/17 05:59 05:59 05:59 Intake Total 1623.05 1070 Output Total 900 2450 Balance 723.05 -1380 Physical Exam - Physical Exam General Appearance: WD/WN, alert, no apparent distress EENT: No scleral icterus (R), No scleral icterus (L) Neck: normal inspection Respiratory: No respiratory distress Cardiac/Chest: regular rate, rhythm Abdomen: non-tender, soft, No distended Skin: normal color, warm/dry Extremities: No pedal edema Neuro/Psych: no motor/sensory deficits, alert, normal mood/affect, oriented x 3 ICD10 Worksheet Patient Problems: Problems Problem Status Onset Acute blood loss anemia Acute Postoperative atrial fibrillation Acute Prosthetic valve endocarditis Acute S/P aortic valve replacement with bioprosthetic valve Acute ~09/02/17 Aortic ectasia Chronic Diastolic dysfunction Chronic
[2017-09-06 08:38] VITALS: BP 110/66
--- NOTE | 2017-09-06 09:19 | PDHOMEO2F ---
Home Oxygen Face to Face Home Orders: I certify that a physician or a nurse practitioner or physician's assurance assistant has had a [id number] encounter with this patient on the date of this order due to the diagnosis listed, which relates to the primary reason the patient requires home oxygen. Alternative treatments have been tried, or considered, and deemed ineffective. It is anticipated that supplemental oxygen will result in improvement with treatment. Home oxygen qualifying diagnosis: hypoxemia, endocarditis, SOB, s/p redo AV replacement SpO2 on room air (%): 81 Frequency of home oxygen needed: continuous Home oxygen liters per minute: 1L resting 2L with activity Home oxygen delivery device: nasal cannula Concentrator: Yes E-tanks for mobility and back up: Yes If ordering portable O2, is the patient mobile in the home?: Yes I certify that, based on these findings, the home oxygen is medically necessary for this patient for the following length of time. Length of time home oxygen needed: 1 month
[2017-09-06] MEDS: buPROPion XL 150 MG TAB PO SCH (09:24)
[2017-09-06] MEDS: CHOLECALCIFEROL VIT D3 1,000 UNITS TAB PO SCH (09:24)
[2017-09-06] MEDS: AMIODARONE HCL 200 MG TAB PO SCH (09:25)
[2017-09-06] MEDS: METOPROLOL TARTRATE 25 MG TAB PO SCH (09:25)
[2017-09-06] MEDS: OMEGA-3 FATTY ACIDS 1,000 MG CAP PO SCH (09:25)
[2017-09-06] MEDS: ASPIRIN 325 MG TAB PO SCH (09:25)
[2017-09-06] MEDS: PANTOPRAZOLE SODIUM 40 MG TAB PO SCH (09:25)
[2017-09-06] MEDS: CETIRIZINE 10 MG TAB PO SCH (09:25)
[2017-09-06] MEDS: SENNOSIDES/DOCUSATE SODIUM TAB PO SCH (09:25)
[2017-09-06] MEDS: cefTRIAXone 2 GM in STERILE WATER INJ 20 ML IV SCH (09:26)
--- NOTE | 2017-09-06 09:56 | PCMIDPN ---
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 Deleon set up meds ceftriaxone 2g IV daily gent 240mg micro 09/02 valve cx NGTD; path peding 09/04 blood cx (2) NGTD Subjective: feeling well no CP no fever Objective: Vital Signs Temp Pulse Resp BP Pulse Ox 36.8 C 74 16 110/66 90 L 09/06/17 08:30 09/06/17 09:25 09/06/17 08:30 09/06/17 08:30 09/06/17 08:30 Microbiology 09/02/17 10:00 Gram Stain - Final Heart - Tissue Laboratory Results 09/05/17 06:15 09/05/17 06:15 09/05/17 09/06/17 09/07/17 05:59 05:59 05:59 Intake Total 1623.05 1070 Output Total 900 2450 Balance 723.05 -1380 - Physical Exam General Appearance: alert, no apparent distress Respiratory: lungs clear, normal breath sounds, other (midline sternotomy without erythema, healing well), No accessory muscle use Cardiac/Chest: regular rate, rhythm, No systolic murmur Extremities: No pedal edema Abdomen: non-tender, soft Skin: No rash Neuro/Psych: alert, normal mood/affect, oriented x 3 - Line/s RUE PICC Lines: No drainage, No erythema - Time Spent With Patient Time Spent with Patient: greater than 35 minutes Time Spent with Patient: Greater than 35 minutes spent on this patients care, greater than 50% of time spent counseling, educating, and coordinating care regarding the above mentioned plan. ICD10 Worksheet Patient Problems: Problems Problem Status Onset Acute blood loss anemia Acute Postoperative atrial fibrillation Acute Prosthetic valve endocarditis Acute S/P aortic valve replacement with bioprosthetic valve Acute ~09/02/17 Aortic ectasia Chronic Diastolic dysfunction Chronic
--- NOTE | 2017-09-06 10:18 | PDIAF ---
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 Code Status: Full Code - Medication Management Discharge Medications: Medications to Continue on Transfer Cyanocobalamin [Vitamin B12 (*)] 1,000 mcg PO Q3D 09/29/15 [Last Taken 08/30/17] Iron/Vit C/Docusate [Dominic-Sequels 65 mg (*)] 1 each PO Q2D 09/29/15 [Last Taken 08/30/17] [place]-3 Fatty Acids [Fish Oil 1000 mg (*)] 1,000 mg PO DAILY 09/29/15 [Last Taken 08/30/17] buPROPion XL [Wellbutrin 150mg XL] 300 mg PO DAILY 09/29/15 [Last Taken 08/30/17 ] Aspirin [Aspirin 325 mg (*)] 325 mg PO DAILY 12/03/15 [Last Taken 08/30/17] Ibuprofen [Motrin (*)] 200 mg PO DAILY PRN 12/03/15 [Last Taken 08/30/17] Cholecalciferol Vit D3 [Vitamin D3 (*)] 2,000 units PO DAILY 09/01/17 [Last Taken 08/30/17] Diltiazem Cd [Cardizem ER 180 MG (RX)] 180 mg PO DAILY 09/01/17 [Last Taken 06/18] Fexofenadine HCl [Cherie Allergy] 180 mg PO DAILY 09/01/17 [Last Taken 08/30/17 ] Transmitter Supervisor Antibiotics: ceftriaxone 2gm IV daily Transmitter Supervisor Antibiotic Stop Date: 10/13/17 Discharge Medications: Refer to the Discharge Home Medication list for PRN reason. PICC Care - Routine: Yes - Orders Services needed: Home Care, Registered Nurse Home Care Face to Face: I certify that this patient was under my care and that I had the required [id number] encounter meeting the encounter requirements on the discharge day. My findings support the fact that the patient is homebound as defined in Home Care Face to Face Continued: CMS Chapter 7 Medicare Benefits Manual 30.1.1 , The condition of the patient is such that there exists a normal inability to leave home and consequently, leaving home would require a considerable and taxing effort. Diet Recommendation: no restrictions on diet, fluid restriction (use comment for amount) (2 liters per day for 4 weeks) Diet Texture: Regular Texture Diet - Labs/Radiology CBC w/diff Date: 09/11/17 (weekly monday) CMP Date: 09/11/17 (weekly monday) Call or Fax Lab and Imaging Results to: Rik Deleon MD [facility] for [facility] at fax [phone] - Follow Up Care Current Providers and Referrals: Darwin Sullivan DO [Doctor of Osteopathy] - 09/12/17 9:00 am Patient,NotPresent [Primary Care Provider] - Rik Deleon MD [Medical Doctor] - 09/14/17 11:30 am
--- NOTE | 2017-09-06 10:51 | PDIAF ---
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 Code Status: Full Code - Medication Management Discharge Medications: Medications to Continue on Transfer Cyanocobalamin [Vitamin B12 (*)] 1,000 mcg PO Q3D 09/29/15 [Last Taken 08/30/17] Iron/Vit C/Docusate [Dominic-Sequels 65 mg (*)] 1 each PO Q2D 09/29/15 [Last Taken 08/30/17] [place]-3 Fatty Acids [Fish Oil 1000 mg (*)] 1,000 mg PO DAILY 09/29/15 [Last Taken 08/30/17] buPROPion XL [Wellbutrin 150mg XL] 300 mg PO DAILY 09/29/15 [Last Taken 08/30/17 ] Aspirin [Aspirin 325 mg (*)] 325 mg PO DAILY 12/03/15 [Last Taken 08/30/17] Cholecalciferol Vit D3 [Vitamin D3 (*)] 2,000 units PO DAILY 09/01/17 [Last Taken 08/30/17] Fexofenadine HCl [Cherie Allergy] 180 mg PO DAILY 09/01/17 [Last Taken 08/30/17 ] Acetaminophen [Tylenol 325mg (*)] 325 - 650 mg PO Q4HRS PRN tab 09/06/17 [Last Taken Unknown] Amiodarone HCl [Pacerone (*)] 200 mg PO BID #30 tab 09/06/17 [Last Taken Unknown ] Hydrocodone/APAP 5/325 [[place] 5/325 (*)] 1 - 2 tab PO Q4HRS PRN #40 tab [Last Taken Unknown] Ibuprofen [Motrin (*)] 200 mg PO Q6H PRN #100 09/06/17 [Last Taken 08/30/17] Metoprolol Tartrate [Lopressor 25 mg (*)] 25 mg PO BID #60 tab 09/06/17 [Last Taken Unknown] Sterile Water Inj [Sterile Water] 10 ml IV DAILY syr 09/06/17 [Last Taken Unknown] cefTRIAXone [Rocephin] 2 gm IV DAILY vial 09/06/17 [Last Taken Unknown] Alf Antibiotics: ceftriaxone 2gm IV daily Alf Antibiotic Stop Date: 10/13/17 Discharge Medications: Refer to the Discharge Home Medication list for PRN reason. PICC Care - Routine: Yes - Orders Services needed: Home Care, Registered Nurse Home Care Face to Face: I certify that this patient was under my care and that I had the required [id number] encounter meeting the encounter requirements on the discharge day. My findings support the fact that the patient is homebound as defined in Home Care Face to Face Continued: CMS Chapter 7 Medicare Benefits Manual 30.1.1 , The condition of the patient is such that there exists a normal inability to leave home and consequently, leaving home would require a considerable and taxing effort. Isolation Type: None Oxygen: 1L/min continuous, 2L/min with activity Diet Recommendation: no restrictions on diet, fluid restriction (use comment for amount) (2 liters per day for 4 weeks) Diet Texture: Regular Texture Diet Weigh Patient: daily [place]: No Additional Instructions: Discharge Instructions: Call [facility] cardiac rehab to enroll in phase 2 classes if not already arranged. Sternal precautions x 4 weeks. Avoid lifting > 10lbs with an outstretched arm. Avoid push/pull activities. No driving until cleared by surgery. Elevate low legs at rest. Avoid prolonged standing or dangling. Cleanse wounds once daily with soap and water. Avoid immersion (pool, hot tub, bath) until scabs off. Ok to leave all wounds open to air. Avoid creams or ointments until scabs fall off. Log daily vital signs once home: weight, heart rate, blood pressure, and pulse oximetry if on oxygen. Call [facility] for overnight weight gain > 2lbs, weekly gain > 5lbs or worsening leg swelling. Call [facility] for resting heart rate > 140 OR for systolic blood pressure consistently < 90 or > 140. Target oxygen saturation > 89%. Ok to use [id number] medications for bowel function. Chest x-ray Instructions: Please obtain a chest xray prior to surgical appointment. Chest x-rays dont require an appointment. Come to the Emergency Room entrance at the [facility] location. Sign in at the computer kiosk in the entryway. You will be given a number and may sit in the waiting area until called. You will be registered and directed to the Imaging desk on the 1st floor. This process can take up to an hour. Make sure you allow enough time before your appointment to have your x-ray taken. - Labs/Radiology CBC w/diff Date: 09/11/17 (weekly monday) CMP Date: 09/11/17 (weekly monday) Call or Fax Lab and Imaging Results to: Rik Deleon MD [facility] for Infectious Diseases at fax [phone] - Follow Up Care Current Providers and Referrals: Rik Deleon MD [Medical Doctor] - 09/14/17 11:30 am Darwin Sullivan DO [Doctor of Osteopathy] - 09/12/17 9:00 am Patient,NotPresent [Primary Care Provider] -
--- NOTE | 2017-09-06 12:17 | ASMTLACE ---
LACE Length of stay for Answers: 4-6 days current admission Acuity / Level of Answers: Yes Care: Did the patient have an inpatient admission? Comorbidities - select Answers: Other Notes: HTN all that apply # of Emergency department Answers: 0 visits in the last 6 months Social determinants Answers: Mental health diagnosis (anxiety, depression, pers onality disorders, etc.) Score: 11 Date Signed: 09/06/2017 12:16 PM Electronically Signed By:EDDIE Holloway
--- NOTE | 2017-09-06 14:14 | PDDCSUM ---
Discharge Summary Discharge Summary: ADMISSION DATE: 09/01/17 DISCHARGE DATE: 09/06/17 ADMISSION DIAGNOSES: 1. 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 Acute blood loss anemia 3. Paroxysmal atrial fibrillation PROCEDURES 09/02/17, Darwin Sullivan: Reoperation AVR with #23 Hess Inspiris valve HOSPITAL COURSE BY PROBLEM LIST 1. 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 IV Ceftriaxone prescribed by ID for 6 weeks. 2. Acute blood loss anemia - stable without the need for transfusions. 4. Paroxysmal atrial fibrillation - conversion to SR with beta-michelle and amiodarone. Thromboprophylaxis deferred ([id number] of 0). CONDITION Good DISPOSITION Home with home health care (antibiotic administration) ACTIVITY Pt was instructed on sternal precautions, activity limitations, and which problems to call [facility] with. Please see Discharge Plan in chart for specifics. DISCHARGE MEDICATIONS Continue: Cyanocobalamin [Vitamin B12 (*)] 1,000 mcg PO Q3D Iron/Vit C/Docusate [Dominic-Sequels 65 mg (*)] 1 each PO Q2D [place]-3 Fatty Acids [Fish Oil 1000 mg (*)] 1,000 mg PO DAILY buPROPion XL [Wellbutrin 150mg XL] 300 mg PO DAILY Aspirin [Aspirin 325 mg (*)] 325 mg PO DAILY Cholecalciferol Vit D3 [Vitamin D3 (*)] 2,000 units PO DAILY Fexofenadine HCl [Cherie Allergy] 180 mg PO DAILY New: Acetaminophen [Tylenol 325mg (*)] 325 - 650 mg PO Q4HRS PRN Amiodarone HCl [Pacerone (*)] 200 mg PO BID (twice daily for 7 days then once daily until bottle empty) Hydrocodone/APAP 5/325 [[place] 5/325 (*)] 1 - 2 tab PO Q4HRS PRN Ibuprofen [Motrin (*)] 200 mg PO Q6H PRN Metoprolol Tartrate [Lopressor 25 mg (*)] 25 mg PO BID Sterile Water Inj [Sterile Water] 10 ml IV DAILY cefTRIAXone [Rocephin] 2 gm IV DAILY Oxygen 1 L/min at rest 2L/min with activity Stop: Cardizem PENDING STUDIES/LABS 1. CXR prior to surgical follow-up and blood work as per ID FOLLOW-UP 1. Darwin Sullivan, 09/12/17, 9:00 AM 2. Rik Deleon, 09/14/17, 11:30 AM
--- NOTE | 2017-09-07 14:07 | ASDISCHSUM ---
Discharge Information Plan Status:Home with Home Health Medically Cleared to Leave:09/06/2017 Discharge Date:09/06/2017 01:25 PM D/C Disposition:Home Health Service [facility] D[facility]C [facility] Projected Discharge Date:09/06/2017 11:00 AM Transportation at D/C: Discharge Delay Reason: Follow-Up Date:09/06/2017 11:00 AM Discharge Slot: Final Diagnosis: Placement Information Referral Type:Home Infusion Referral ID:[id number] Provider Name:[facility] [place] ([facility]) Address 1[address] Address 2: City:Given Selection Factors: State:[place] Referral Type:*Home Health Care Services Referral ID:[id number] Provider Name:[facility] [place] Address 1:[address] Address 2:[address] City:[place] Selection Factors: State:[place] Patient Contact Information Contact Name:KM Relationship: Address:[address] [address] City:[place] Alternate Phone: [facility]/Zip Code:[place] [address] Email: Financial Information Financial Class:HMO and PPO Plans Primary Plan Desc:[facility] Primary Plan Number:[id number] Secondary Plan Desc: Secondary Plan Number: Assessment Information LACE LACE Length of stay for Answers: 4-6 days current admission Acuity / Level of Answers: Yes Care: Did the patient have an inpatient admission? Comorbidities - select Answers: Other Notes: HTN all that apply # of Emergency department Answers: 0 visits in the last 6 months Social determinants Answers: Mental health diagnosis (anxiety, depression, pers onality disorders, etc.) Score: 11 Date Signed: 09/06/2017 12:16 PM Electronically Signed By:EDDIE Holloway [facility] CM Progress Note CM Note CM Note Notes: Pt admitted with an infected valve and s/p aortic valve replacement redo. Pt has a Bipolar d/o dx and not on meds since 2006. CM will follow for any d/c needs. Date Signed: 09/02/2017 03:29 PM Electronically Signed By:PRESTON Lawson [facility] CM Progress Note CM Note CM Note Notes: 09/04/2017 Case Management Note Met w/pt to discuss d/c antibiotic needs. Faxed referrals to several home infusion companies. Pt is in network with [facility] and has met his deductible, home antibiotics are 100 % covered. [facility] priced out the antibiotics at $18.40 per day. Waiting to hear pricing from [facility]. Pt inquired about using the infusion center at [address] [place] [address] through [facility]. After discussing above options pt prefers home IV therapy. Case Management faxed referrals for home improvement advisor. Case Management d/c poc: home with iv antibiotics and home improvement advisor. Case Management to follow. Date Signed: 09/04/2017 02:21 PM Electronically Signed By:Heather Rossi RN [facility] CM Progress Note CM Note CM Note Notes: 09/05/2017 Case Management Note Pt met w/healthcare sales representative from [facility]. Pt decided [facility] will provide infusion services at d/c. [facility] home care considering pt but has yet to accept. Pt insurance has limited contracts with home health agencies in the area. Case Management d/c poc: home with [facility] and yet to be determined Home Health Agency. Case Management to follow. Date Signed: 09/05/2017 03:37 PM Electronically Signed By:Heather Rossi RN Case Management Discharge Plan Note Case Management Discharge Discharge Order Complete? Answers: Yes Patient to Obtain Answers: Other Notes: [facility] Transportation Arranged Answers: Family/Friends EMTALA Complete Answers: No Case Management Transport Answers: No Form Complete Faxed Final Orders Answers: Yes Agency/Facility Transfer Answers: Yes Report Printed & Faxed to Receiving Agency Family Notified Answers: No Discharge Comments Notes: spoke w/ Tete Wisdom RN, [place], [place] regarding d/c POC. Pt is being discharged today. CM met w/ pt to confirm the plan. DC orders sent to [facility] and [facility]. CM notified both agencies of pts discharge. Per Viry Izaguirre, pt can have iv infusion at any time tomorrow. Pt will only be on ceftriaxone 2mg daily. Gentamicin has been discontinued. CM available for changes. Plan: Wilian jason [facility] LEFTY HERNANDEZ Date Signed: 09/06/2017 12:15 PM Electronically Signed By:EDDIE Holloway Intervention Information
== END 2017-09-06 13:25 | disposition home health service (06) | DRG 228 ==
LOC: OBSVTOIN 15:36 → F2W 15:36 → F2N 09-02 09:00 → F2W 09-03 15:16
PROVIDERS: ADMIT Thoracic Surgery (Cardiothoracic Vascular Surgery); ATTEND Thoracic Surgery (Cardiothoracic Vascular Surgery)
DX: T82.6XXA Infection and inflammatory reaction due to cardiac valve prosthesis, initial encounter (principal); I33.0 Acute and subacute infective endocarditis; B95.4 Other streptococcus as the cause of diseases classified elsewhere; D62 Acute posthemorrhagic anemia; I48.0 Paroxysmal atrial fibrillation; I11.9 Hypertensive heart disease without heart failure; F31.9 Bipolar disorder, unspecified; Z90.49 Acquired absence of other specified parts of digestive tract; I77.810 Thoracic aortic ectasia; L30.9 Dermatitis, unspecified; Z95.2 Presence of prosthetic heart valve
CPT/HCPCS: 82947-QW; 97116-GP; 97161-GP; 97165-GO; 97535-GO; C1751; J0153; J0282; J0690; J0696; J1100; J1265; J1580; J1644; J1815; J1885; J1940; J2001; J2150; J2250; J2260; J2270; J2370; J2405; J2704; J2720; J2930; J3010; J3475; J7060; P9041

== ENCOUNTER → 2017-09-12 | Outpatient (CLI) | payer OTHER | LOC: FIMAGING 09:05 | PROVIDERS: ATTEND Thoracic Surgery (Cardiothoracic Vascular Surgery) | DX: Z09 Encounter for follow-up examination after completed treatment for conditions other than malignant neoplasm (principal); Z95.2 Presence of prosthetic heart valve ==